=== PATIENT | female | born 1995 | race Caucasian/White ===

== ENCOUNTER 2017-09-03 11:27 | Emergency (ER) | END 2017-09-03 16:42 | disposition home or self-care (01) ==

== ENCOUNTER 2017-09-10 06:27 | Emergency (ER) | END 2017-09-10 09:11 | disposition home or self-care (01) ==

== ENCOUNTER 2018-11-30 12:39 | Emergency (ER) | payer MEDICAID ==
[~2018-11-30] VITALS: Ht 167.6 cm; Wt 83.0 kg
[~2018-11-30 12:39] MED LIST: CEPH-443 PO; CYCL10TA7 PO; IBUP-1542 PO; IBUP800T48 PO; NITR-58 PO; TRAM50TA2 PO
[2018-11-30 13:01] VITALS: Ht 167.6 cm; Wt 83.0 kg
--- NOTE | 2018-11-30 17:32 | ERD ---
ER Documentation Chief Complaint Chief Complaint Complains of generalized weakness x 3 days patient is 18 weeks HPI 23-year-old patient presents with complaint of generalized weakness and chills for the past 3 days. Patient states she is 9 weeks . At this time she states she has some burning in the stomach In the epigastric area. States that she was recently diagnosed with a UTI couple days ago and she just started on amoxicillin yesterday. Denies fevers, back pain, dysuria, nausea, vomiting, diarrhea, flank pain. Denies any past medical history. She is unsure of her allergy history. ROS All systems reviewed and are negative except as per history of present illness. Medications Home Meds Active Scripts Cephalexin* (Keflex*) 500 Mg Capsule, 500 MG PO BID for UTI for 7 Days, CAP Prov:JOSEFA GRAY 11/30/18 Nitrofurantoin Monohyd Macrocr* (Macrobid*) 100 Mg Capsr, 100 MG PO BID for 5 Days, CAP Prov:DESIREE FALLON PA-C 09/15/18 Cephalexin* (Keflex*) 500 Mg Capsule, 500 MG PO QID for 10 Days, CAP Prov:VONDA HUERTAS MD 09/10/17 Ibuprofen* (Motrin*) 800 Mg Tab, 800 MG PO Q6H PRN for PAIN AND OR ELEVATED TEMP, #30 TAB Prov:VONDA HUERTAS MD 09/10/17 Cyclobenzaprine Hcl* (Cyclobenzaprine Hcl*) 10 Mg Tablet, 10 MG PO BID, #8 TAB Prov:GEE MONTOYA PA-C 05/13/16 Ibuprofen* (Motrin*) 600 Mg Tab, 600 MG PO Q6, #30 TAB Prov:GEE MONTOYA PA-C 05/13/16 Tramadol HCl (Tramadol HCl) 50 Mg Tablet, 50 MG PO Q4 PRN for PAIN, #20 TAB Prov:GEE MONTOYA PA-C 05/13/16 Allergies Allergies: Coded Allergies: No Known Allergy (Unverified , 09/10/17) PMhx/Soc History of Surgery: Yes (RIGHT HIP SX WITH SCREWS) Anesthesia Reaction: No Hx Miscellaneous Medical Probl: Yes (intrauterine devices) Hx Alcohol Use: No Hx Substance Use: No Hx Tobacco Use: No Smoking Status: Never smoker FmHx Family History: No diabetes, No coronary disease, No other Physical Exam Vitals Vital Signs Date Temp Pulse Resp B/P (MAP) Pulse Ox O2 O2 Flow FiO2 Time Delivery Rate 11/30/18 98.2 75 18 119/64 100 Room Air 18:41 (82) 11/30/18 97.4 70 20 107/60 98 13:01 (76) Physical Exam Const: No acute distress Head: Atraumatic Eyes: Normal Conjunctiva ENT: Normal External Ears, Nose and Mouth. Neck: Full range of motion. No meningismus. Resp: Clear to auscultation bilaterally Cardio: Regular rate and rhythm, no murmurs Abd: Soft, non tender, non distended. Normal bowel sounds Skin: No petechiae or rashes Back: No midline or flank tenderness Ext: No cyanosis, or edema Neur: Awake and alert Psych: Normal Mood and Affect Result Diagram: 11/30/18 2430 Results 24 hrs Laboratory Tests Test 11/30/18 17:06 11/30/18 17:12 Urine Color MARGAUX Urine Clarity CLOUDY Urine pH 5.0 Urine Specific [place] 1.031 Urine Ketones TRACE mg/dL Urine Nitrite NEGATIVE mg/dL Urine Bilirubin NEGATIVE mg/dL Urine Urobilinogen 1+ mg/dL Urine Leukocyte Esterase 2+ Dmitry/ul Urine Microscopic RBC 10 /HPF Urine Microscopic WBC 12 /HPF Urine Squamous Epithelial Cells MANY /HPF Urine Bacteria FEW /HPF Urine Mucus FEW /HPF Urine Yeast (Budding) FEW /HPF Urine Hemoglobin NEGATIVE mg/dL Urine Glucose NEGATIVE mg/dL Urine Total Protein NEGATIVE mg/dl White Blood Count 10.3 10^3/ul Red Blood Count 4.37 10^6/ul Hemoglobin 13.0 g/dl Hematocrit 39.8 % Mean Corpuscular Volume 91.1 fl Mean Corpuscular Hemoglobin 29.7 pg Mean Corpuscular Hemoglobin Concent 32.7 g/dl Red Cell Distribution Width 14.1 % Platelet Count 320 10^3/UL Mean Platelet Volume 9.4 fl Immature Granulocytes % 0.700 % Neutrophils % 79.2 % Lymphocytes % 12.2 % Monocytes % 5.7 % Eosinophils % 1.7 % Basophils % 0.5 % Nucleated Red Blood Cells % 0.0 /100WBC Immature Granulocytes # 0.070 10^3/ul Neutrophils # 8.1 10^3/ul Lymphocytes # 1.3 10^3/ul Monocytes # 0.6 10^3/ul Eosinophils # 0.2 10^3/ul Basophils # 0.1 10^3/ul Nucleated Red Blood Cells # 0.0 10^3/ul Lipase 92 U/L Beta HCG, Quantitative 634403.0 mIU/ml Procedures/MDM DIAGNOSTIC IMAGING REPORT Patient: BRICE ALBA : 1995 Age: 23 Sex: F MR #: [id number] DOS: 11/30/18 1700 Ordering MD: JOSEFA GRAY Location: [facility]TE Room/Bed: PROCEDURE: US OB. CLINICAL INDICATION: Pelvic pain TECHNIQUE: Transabdominal views of the pelvis were obtained. COMPARISON: No prior studies are available for comparison. FINDINGS: There is a single intrauterine gestation with a CRL measuring 1.1 cm, corresponding to a gestational age of 7 weeks and 1 day. The heart rate is noted at 161 bpm. There is a hypoechoic fluid collection adjacent to the gestational sac, measuring 1.3 cm, consistent with subchorionic hemorrhage. The right ovary measures 2.6 x 1.7 x 2.6 cm. The left ovary measures 2.8 x 1.9 x 2.7 cm. No ovarian or adnexal mass lesion is seen. There is no free fluid. RPTAT: AA IMPRESSION: Single live intrauterine with an estimated gestational age of 7 weeks and 1 day, based on ultrasound measurements. Small area of subchorionic hemorrhage. Close follow-up is recommended. .Jon Alcocer MD, MD Date Time Electronically viewed and signed by .Jon Alcocer MD, on 11/30/2018 18:00 .S/ CC: JOSEFA GRAY [id number] ER Course: CBC, UA, beta quant HCG, type and RH, vaginal US/abdominal US ordered. UA positive for UT. MDM: UA was positive for UTI. Patient stated that she was taking amoxicillin but I advised her that Keflex is the recommended antibiotic and patients with UTIs and I prescribed her Keflex which she agreed to take instead. I have low suspicion for pyelonephritis given the lack of fever, flank pain, vomiting. I have low suspicion for ectopic based on results of US, hemodynamic stability, physical exam and patient history. I have low suspicion for septic , placenta abrupta, appendicitis, cholecystitis, bowel obstruction, ovarian torsion, symptomatic anemia, PID, surgical abdomen, or other life threatening conditions based on patient history, physical exam, and lab/imaging results. Patient discharged with strict ER precautions. 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 All questions answered at discharge. Departure Diagnosis: Primary Impression: UTI (urinary tract infection) Urinary tract infection type: site unspecified Hematuria presence: without hematuria Qualified Codes: N39.0 - Urinary tract infection, site not specified Additional Impression: Acute weakness Condition: Stable JOSEFA GRAY Nov 30, 2018 17:32
[2018-11-30] MEDS ORDERED: CEPH-443 PO (18:07)
[2018-11-30 18:41] VITALS: BP 119/64; PULSE 75; RESP 18
== END 2018-11-30 18:42 | disposition home or self-care (01) ==
LOC: FTE 12:39
DX: O23.41 Unspecified infection of urinary tract in pregnancy, first trimester (principal); R53.1 Weakness; R10.2 Pelvic and perineal pain; Z3A.01 Less than 8 weeks gestation of pregnancy
CPT/HCPCS: 36415; 76801; 81001; 83690; 84702; 85025; 86900; 86901; 87086

== ENCOUNTER 2018-12-01 21:05 | Emergency (ER) | payer SELFPAY ==
[~2018-12-01] VITALS: Ht 165.1 cm; Wt 84.5 kg
[2018-12-01 21:13] VITALS: BP 119/67; PULSE 61; RESP 18; Ht 165.1 cm; Wt 84.5 kg
[2018-12-02] MEDS ORDERED: ACET-141 PO (03:28)
== END 2018-12-01 21:30 | disposition left against medical advice (07) ==
LOC: FTE 21:05
DX: Z53.21 Procedure and treatment not carried out due to patient leaving prior to being seen by health care provider (principal)

== ENCOUNTER 2018-12-01 22:33 | Emergency (ER) | payer MEDICAID ==
[~2018-12-01] VITALS: Ht 165.1 cm; Wt 84.7 kg
[2018-12-02 00:08] VITALS: BP 127/74; PULSE 76; RESP 18; Ht 165.1 cm; Wt 84.7 kg
[2018-12-02] MEDS ORDERED: LIDOCAINE 1% (MPF) 5 ML VIAL INFIL ONE (02:00)
[2018-12-02] MEDS ORDERED: ACET-141 PO (03:28)
--- NOTE | 2018-12-02 03:29 | ERD ---
ER Documentation Chief Complaint Chief Complaint swelling/pain right axilla x 2 days, 7 weeks . on atb for uti HPI 23-year-old female presents for right axilla nodule times 2 days. She states that she has 10 out of 10 pain, pain described as a throbbing sensation, nonradiating. She denies fever. states that she been taking Tylenol at home without relief. She does have a history of right axilla cyst. She is currently taking amoxicillin for urinary tract infection. She denies chest pain or shortness of breath. Denies abdominal pain, nausea, vomiting. ROS All systems reviewed and are negative except as per history of present illness. Medications Home Meds Active Scripts Acetaminophen* (Acetaminophen*) 500 MG Extra Strength Tablet, 500 MG PO TID PRN for PAIN, #30 TAB Prov:ZARA PARKER DO 12/02/18 Cephalexin* (Keflex*) 500 Mg Capsule, 500 MG PO BID for UTI for 7 Days, CAP Prov:JOSEFA GRAY 11/30/18 Nitrofurantoin Monohyd Macrocr* (Macrobid*) 100 Mg Capsr, 100 MG PO BID for 5 Days, CAP Prov:DESIREE FALLON PA-C 09/15/18 Cephalexin* (Keflex*) 500 Mg Capsule, 500 MG PO QID for 10 Days, CAP Prov:VONDA HUERTAS MD 09/10/17 Ibuprofen* (Motrin*) 800 Mg Tab, 800 MG PO Q6H PRN for PAIN AND OR ELEVATED TEMP, #30 TAB Prov:VONDA HUERTAS MD 09/10/17 Cyclobenzaprine Hcl* (Cyclobenzaprine Hcl*) 10 Mg Tablet, 10 MG PO BID, #8 TAB Prov:GEE MONTOYA PA-C 05/13/16 Ibuprofen* (Motrin*) 600 Mg Tab, 600 MG PO Q6, #30 TAB Prov:GEE MONTOYA PA-C 05/13/16 Tramadol HCl (Tramadol HCl) 50 Mg Tablet, 50 MG PO Q4 PRN for PAIN, #20 TAB Prov:GEE MONTOYA PA-C 05/13/16 Allergies Allergies: Coded Allergies: No Known Allergy (Unverified , 09/10/17) PMhx/Soc History of Surgery: Yes (RIGHT HIP SX WITH SCREWS) Anesthesia Reaction: No Hx Miscellaneous Medical Probl: Yes (intrauterine devices) Hx Alcohol Use: No Hx Substance Use: No Hx Tobacco Use: No Physical Exam Vitals Vital Signs Date Temp Pulse Resp B/P (MAP) Pulse Ox O2 O2 Flow FiO2 Time Delivery Rate 12/02/18 84.9 76 18 127/74 100 00:08 (91) Physical Exam Const: No acute distress Resp: Clear to auscultation bilaterally Cardio: Regular rate and rhythm, no murmurs Abd: Soft, non tender, non distended. Normal bowel sounds Skin: Right axilla nodule about 2 cm with underlying fluctuance and mild inc reased warmth over the area. Back: No midline or flank tenderness Ext: No cyanosis, or edema Neur: Awake and alert Psych: Normal Mood and Affect Results 24 hrs Current Medications Medications Dose Sig/Krishan Start Time Status Last (Trade) Ordered Route PRN Stop Time Admin Dose Reason Admin Lidocaine 5 ml ONCE ONCE 12/02/18 DC (Xylocaine INFIL 02:00 12/02/18 1% (Mpf)) 02:01 Procedures/MDM Abscess Incision and Drainage with irrigation by me: Location: Right axilla Anesthesia: [Local 1% Lidocaine without epinephrine] Technique: [Irrigated. Disrupted loculations w/ instrumentation] Packing: [None] Complications: [Neurovascularly intact post procedure] 48 hour wound check. Scar minimization instructions given. Patient's skin symptoms have stabilized while they have been evaluated in the department and are appropriate for outpatient care and work up. Exam and w/u not consistent w/ sepsis, deep space infection, or foreign body. Medical Decision Making: Differential diagnosis includes but not limited to abscess, cellulitis, erysipelas Patient appeared well on physical exam. Physical examination consistent with a right axilla abscess Incision and drainage was done in the ER, see procedure note above. Patient advised to continue with amoxicillin for urinary tract infection. Advised to return to the ER in 48 hours for wound check. Prescription(s): Patient given prescription for supportive medication(s). Patient advised to follow up with PCP in 1-2 days. Patient advised to return to ED for new or worsening symptoms. Patient stable on discharge from the ED. Disclaimer: Inadvertent spelling and grammatical errors are likely due to EHR/dictation software use and do not reflect on the overall quality of patient care. Also, please note that the electronic time recorded on this note does not necessarily reflect the actual time of the patient encounter. Departure Diagnosis: Primary Impression: Abscess Condition: Fair Patient Instructions: Abscess, Incision And Drainage Referrals: [facility] YOU HAVE RECEIVED A MEDICAL SCREENING EXAM AND THE RESULTS INDICATE THAT YOU DO NOT HAVE A CONDITION THAT REQUIRES URGENT TREATMENT IN THE EMERGENCY DEPARTMENT. FURTHER EVALUATION AND TREATMENT OF YOUR CONDITION CAN WAIT UNTIL YOU ARE SEEN IN YOUR DOCTORS OFFICE WITHIN THE NEXT 1-2 DAYS. IT IS YOUR RESPONSIBILITY TO MAKE AN APPOINTMENT FOR FOLOW-UP CARE. IF YOU HAVE A PRIMARY DOCTOR --you should call your primary doctor and schedule an appointment IF YOU DO NOT HAVE A PRIMARY DOCTOR YOU CAN CALL OUR PHYSICIAN REFERRAL HOTLINE AT IF YOU CAN NOT AFFORD TO SEE A PHYSICIAN YOU CAN CHOSE FROM THE FOLLOWING [facility] [address] [facility] [address]. [facility] [address] [facility] [address] [facility] [address] [facility]. [facility] [address] [facility]. [facility]. [address] Additional Instructions: Call your primary care doctor TOMORROW for an appointment during the next 1-2 days.See the doctor sooner or return here if your condition worsens before your appointment time. Return to ED in 2 days for wound check. ZARA PARKER DO Dec 02, 2018 03:29
== END 2018-12-02 03:44 | disposition home or self-care (01) ==
LOC: FTE 22:33
DX: O99.711 Diseases of the skin and subcutaneous tissue complicating pregnancy, first trimester (principal); L02.411 Cutaneous abscess of right axilla; Z3A.01 Less than 8 weeks gestation of pregnancy
CPT/HCPCS: 10060; Z7502; Z7610

== ENCOUNTER 2019-02-05 11:55 | Emergency (ER) | payer MEDICAID ==
[~2019-02-05] VITALS: Ht 165.1 cm; Wt 83.9 kg
[~2019-02-05 11:55] MED LIST changes: +ACET-141 PO
[2019-02-05 12:17] VITALS: BP 128/56; PULSE 91; RESP 18; Ht 165.1 cm; Wt 83.9 kg
[2019-02-05] MEDS ORDERED: CEPH-443 PO (13:45)
[2019-02-05] MEDS ORDERED: ACET325T33 PO (13:46)
--- NOTE | 2019-02-05 13:51 | ERD ---
ER Documentation Chief Complaint Chief Complaint flu like symptoms weak, poor appetite with diarrhea HPI 23-year-old female presenting with itchy eyes runny nose scratchy throat since Tuesday. Patient states she is 18 weeks and her OB is Dr. Marquis at [facility]. Patient denies any abdominal pain, vaginal bleeding, pelvic or abdominal discomfort. Patient states that she is just been feeling like she has a scratchy throat runny nose sore throat. Patient denies shortness of breath, productive cough, chest pain. Patient denies any allergies to medic ations. Patient states she is only taking her vitamins. ROS All systems reviewed and are negative except as per history of present illness. Medications Home Meds Active Scripts Acetaminophen* (Tylenol*) 325 Mg Tablet, 1 TAB PO Q6 PRN for PAIN AND OR ELEVATED TEMP, #20 TAB Prov:JAS MONGE PA-C 02/05/19 Cephalexin* (Keflex*) 500 Mg Capsule, 500 MG PO BID for 7 Days, CAP Prov:JAS MONGE PA-C 02/05/19 Acetaminophen* (Acetaminophen*) 500 MG Extra Strength Tablet, 500 MG PO TID PRN for PAIN, #30 TAB Prov:ZARA PARKER DO 12/02/18 Cephalexin* (Keflex*) 500 Mg Capsule, 500 MG PO BID for UTI for 7 Days, CAP Prov:JOSEFA GRAY 11/30/18 Nitrofurantoin Monohyd Macrocr* (Macrobid*) 100 Mg Capsr, 100 MG PO BID for 5 Days, CAP Prov:DESIREE FALLON PA-C 09/15/18 Cephalexin* (Keflex*) 500 Mg Capsule, 500 MG PO QID for 10 Days, CAP Prov:VONDA HUERTAS MD 09/10/17 Ibuprofen* (Motrin*) 800 Mg Tab, 800 MG PO Q6H PRN for PAIN AND OR ELEVATED TEMP, #30 TAB Prov:VONDA HUERTAS MD 09/10/17 Cyclobenzaprine Hcl* (Cyclobenzaprine Hcl*) 10 Mg Tablet, 10 MG PO BID, #8 TAB Prov:GEE MONTOYA PA-C 05/13/16 Ibuprofen* (Motrin*) 600 Mg Tab, 600 MG PO Q6, #30 TAB Prov:GEE MONTOYA PA-C 05/13/16 Tramadol HCl (Tramadol HCl) 50 Mg Tablet, 50 MG PO Q4 PRN for PAIN, #20 TAB Prov:GEE MONTOYA Geno JONES 05/13/16 Allergies Allergies: Coded Allergies: No Known Allergy (Unverified , 09/10/17) PMhx/Soc History of Surgery: Yes (RIGHT HIP ) Anesthesia Reaction: No Hx Miscellaneous Medical Probl: Yes (18 weeks ) Hx Alcohol Use: No Hx Substance Use: No Hx Tobacco Use: No Smoking Status: Never smoker FmHx Family History: No diabetes, No coronary disease, No other Physical Exam Vitals Vital Signs Date Temp Pulse Resp B/P (MAP) Pulse Ox O2 O2 Flow FiO2 Time Delivery Rate 02/05/19 97.8 91 18 128/56 97 12:17 (80) Physical Exam GENERAL: The patient is well-appearing, well-nourished, in no acute distress HEENT: Atraumatic. Conjunctivae are pink. Pupils equal, round, and reactive to light. There is no scleral icterus. Tympanic membranes clear bilaterally. Oropharynx clear. No nystagmus or photophobia. NECK: C-spine is soft and supple. There is no meningismus. There is no cervical lymphadenopathy. CHEST: Clear to auscultation bilaterally. There are no rales, wheezes or rhonchi. HEART: Regular rate and rhythm. No murmurs, clicks, rubs or gallops. ABDOMEN:Soft, nontender and nondistended. Good bowel sounds. No rebound or guarding. No gross peritonitis. No gross organomegaly or masses. No Mcconnell sign or McBurney point tenderness. BACK: No midline or flank tenderness. Results 24 hrs Laboratory Tests Test 02/05/19 13:08 Urine Color YELLOW Urine Clarity CLOUDY Urine pH 7.0 Urine Specific [place] 1.016 Urine Ketones NEGATIVE mg/dL Urine Nitrite NEGATIVE mg/dL Urine Bilirubin NEGATIVE mg/dL Urine Urobilinogen NEGATIVE mg/dL Urine Leukocyte Esterase 3+ Dmitry/ul Urine Microscopic RBC 2 /HPF Urine Microscopic WBC 10 /HPF Urine Squamous Epithelial Cells MANY /HPF Urine Bacteria FEW /HPF Urine Mucus FEW /HPF Urine Hemoglobin NEGATIVE mg/dL Urine Glucose NEGATIVE mg/dL Urine Total Protein NEGATIVE mg/dl Procedures/MDM ED course: UA Rapid strep The patient was stable throughout the ED course. The patient and/or family informed of laboratory and diagnostic imaging results throughout the ED course. Medical decision makin-year-old female presenting with URI symptoms. Patient's physical exam was unremarkable rapid strep was done and negative. The UA was obtained on the patient and indicated that she has a UTI. Patient denied any symptoms of dysuria, frequency, presence of blood in urine, back pain. Patient's physical exam was unremarkable. Patient's UA came back positive for UTI. Patient has no allergies to medications and is asymptomatic, patient will be treated outpatient with Keflex. Patient was informed that she has an upper respiratory infection that is most likely viral she can take acetaminophen for any discomfort but to just increase her daily water intake. Based on physical exam I have Low suspicion for pneumonia, meningitis, sinusitis, otitis externa, acute otitis media, strep pharyngitis, epiglottitis or peritonsillar abscess, threatened , spontaneous placenta, vasa-previa, placenta previa, placenta percreta, cervical lesions, uterine abruption, bleeding from bowel or bladder. Patient has been instructed to follow-up with her OB regarding this visit. The patient had no further questions upon discharge and is in agreement to the treatment plan. Patient was advised if symptoms worsen to return the ER immediately Prescription for home: Keflex Acetaminophen Discharge: At this time, patient is stable for discharge and outpatient management. I have instructed the patient to follow-up with his\her primary care physician in 1 to 2 days. I have discussed with the patient the possibility of needing to see a specialist for further work-up and imaging studies if symptoms persist. I have instructed the patient to promptly return to the ER for any new or worsening symptoms including increased pain, fever, nausea, vomiting, weakness or LOC. The patient and\or family expressed understanding of and agreement with this plan. All questions were answered. Home care instructions were provided. Disclaimer: Inadvertent spelling and grammatical errors are likely due to EHR\dictation software use and do not reflect on the overall quality of patient care. Also, please note that the electronic time recorded on the note does not necessarily reflect the actual time of the patient encounter. Departure Diagnosis: Primary Impression: Upper respiratory infection URI type: unspecified viral URI Qualified Codes: J06.9 - Acute upper respiratory infection, unspecified Additional Impression: UTI (urinary tract infection) Urinary tract infection type: site unspecified Hematuria presence: without hematuria Qualified Codes: N39.0 - Urinary tract infection, site not specified Condition: Stable Referrals: [facility] YOU HAVE RECEIVED A MEDICAL SCREENING EXAM AND THE RESULTS INDICATE THAT YOU DO NOT HAVE A CONDITION THAT REQUIRES URGENT TREATMENT IN THE EMERGENCY DEPARTMENT. FURTHER EVALUATION AND TREATMENT OF YOUR CONDITION CAN WAIT UNTIL YOU ARE SEEN IN YOUR DOCTORS OFFICE WITHIN THE NEXT 1-2 DAYS. IT IS YOUR RESPONSIBILITY TO MAKE AN APPOINTMENT FOR FOLOW-UP CARE. IF YOU HAVE A PRIMARY DOCTOR --you should call your primary doctor and schedule an appointment IF YOU DO NOT HAVE A PRIMARY DOCTOR YOU CAN CALL OUR PHYSICIAN REFERRAL HOTLINE AT IF YOU CAN NOT AFFORD TO SEE A PHYSICIAN YOU CAN CHOSE FROM THE FOLLOWING [facility] [address] [facility]. [facility] [address] [facility]. [facility] [address] [facility] [address] [facility] [facility] [address] [facility] [facility] [address] [facility]. [facility] YOU HAVE RECEIVED A MEDICAL SCREENING EXAM AND THE RESULTS INDICATE THAT YOU DO NOT HAVE A CONDITION THAT REQUIRES URGENT TREATMENT IN THE EMERGENCY DEPARTMENT. FURTHER EVALUATION AND TREATMENT OF YOUR CONDITION CAN WAIT UNTIL YOU ARE SEEN IN YOUR DOCTORS OFFICE WITHIN THE NEXT 1-2 DAYS. IT IS YOUR RESPONSIBILITY TO MAKE AN APPOINTMENT FOR FOLOW-UP CARE. IF YOU HAVE A PRIMARY DOCTOR --you should call your primary doctor and schedule and appointment IF YOU DO NOT HAVE A PRIMARY DOCTOR YOU CAN CALL OUR PHYSICIAN REFERRAL HOTLINE AT . IF YOU CAN NOT AFFORD TO SEE A PHYSICIAN YOU CAN CHOSE FROM THE FOLLOWING [facility] INSTITUTIONS: [facility] [address] [place] [address] [facility] [address] [place] [address] [facility] [address] [place] [address] Additional Instructions: Call your primary care doctor TOMORROW for an appointment during the next 1-2 days.See the doctor sooner or return here if your condition worsens before your appointment time. JAS MONGE PA-C Feb 05, 2019 13:51
== END 2019-02-05 14:20 | disposition home or self-care (01) ==
LOC: FTE 11:55
DX: O99.512 Diseases of the respiratory system complicating pregnancy, second trimester (principal); J06.9 Acute upper respiratory infection, unspecified; O23.42 Unspecified infection of urinary tract in pregnancy, second trimester; Z3A.18 18 weeks gestation of pregnancy
CPT/HCPCS: 81001; 87086; 87880; Z7502; 99283

== ENCOUNTER 2019-05-16 10:27 | Outpatient (CLI) | payer MEDICAID ==
[~2019-05-16] VITALS: Ht 165.1 cm; Wt 86.3 kg
[~2019-05-16 10:27] MED LIST changes: +ACET325T33 PO
[2019-05-16 10:42] VITALS: Ht 165.1 cm; Wt 86.3 kg
[2019-05-16 10:43] VITALS: BP 118/66; PULSE 80; RESP 18
== END 2019-05-16 12:10 | disposition home or self-care (01) ==
LOC: OBT 10:27 → L-D 10:29 → OBT 12:10
PROVIDERS: ATTEND Obstetrics & Gynecology
DX: O26.893 Other specified pregnancy related conditions, third trimester (principal); Z3A.32 32 weeks gestation of pregnancy; R35.0 Frequency of micturition; M54.9 Dorsalgia, unspecified
CPT/HCPCS: 76817; 76818; 81001; 87086; Z7500; G0463

== ENCOUNTER 2019-06-26 13:00 | Inpatient (IN) | payer MEDICAID ==
[~2019-06-26] VITALS: Ht 165.1 cm; Wt 87.4 kg
[~2019-06-26 13:00] MED LIST changes: -ACET-141 PO; -ACET325T33 PO; -CEPH-443 PO; -CYCL10TA7 PO; -IBUP800T48 PO; -NITR-58 PO; -TRAM50TA2 PO
[2019-06-26 13:33] VITALS: Ht 165.1 cm; Wt 87.4 kg
[2019-06-26 13:34] VITALS: BP 109/63; PULSE 81; RESP 18
[2019-06-26] MEDS ORDERED: LACTATED RINGER'S 1,000 ML IV PRN (15:40)
[2019-06-26] MEDS ORDERED: OXYTOCIN 30 UNITS/LR 500 ML IV SCH ×3 (16:00)
[2019-06-26] MEDS ORDERED: MISOPROSTOL 200 MCG TAB PR PRN (16:00)
[2019-06-26] MEDS ORDERED: METHYLERGONOVINE 0.2 MG INJ IM PRN (16:00)
[2019-06-26] MEDS ORDERED: MINERAL OIL LIGHT 10 ML VIAL TOP PRN (16:00)
[2019-06-26] MEDS ORDERED: AMPICILLIN 2 GM/NS (PMX) 100 ML IV ONE (16:00)
[2019-06-26] MEDS ORDERED: IBUPROFEN 600 MG TAB PO PRN (16:00)
[2019-06-26] MEDS ORDERED: OXYTOCIN 30 UNITS/LR 500 ML IV PRN (16:00)
[2019-06-26] MEDS ORDERED: CARBOPROST 250 MCG INJ IM PRN (16:00)
[2019-06-26] MEDS ORDERED: LIDOCAINE 1% (MPF) 30 ML INJ INJ PRN (16:00)
[2019-06-26] MEDS: LACTATED RINGER'S 1,000 ML IV SCH (16:03)
[2019-06-26] MEDS: MISOPROSTOL 50 MCG CAPSULE PO SCH ×2 (17:46→22:37)
[2019-06-26] MEDS: URSODIOL 300 MG CAP PO SCH (20:56)
[2019-06-26] MEDS: AMPICILLIN 1 GM/NS (PMX) 50 ML IV SCH (20:56)
[2019-06-27] MEDS: LACTATED RINGER'S 1,000 ML IV SCH ×3 (01:55→19:52)
[2019-06-27] MEDS: AMPICILLIN 1 GM/NS (PMX) 50 ML IV SCH ×6 (02:01→22:06)
[2019-06-27] MEDS: MISOPROSTOL 50 MCG CAPSULE PO SCH ×4 (04:34→16:22)
[2019-06-27] MEDS ORDERED: MISOPROSTOL 50 MCG CAPSULE PO SCH (08:30)
[2019-06-27] MEDS: URSODIOL 300 MG CAP PO SCH ×3 (09:30→22:06)
[2019-06-28] MEDS: AMPICILLIN 1 GM/NS (PMX) 50 ML IV SCH ×5 (02:11→18:09)
[2019-06-28] MEDS: LACTATED RINGER'S 1,000 ML IV SCH ×3 (04:18→17:07)
[2019-06-28] MEDS: URSODIOL 300 MG CAP PO SCH ×2 (09:09→13:00)
[2019-06-28] MEDS: BUTORPHANOL 2 MG INJ IV PRN ×2 (13:47→16:41)
[2019-06-28] MEDS ORDERED: NALOXONE (0.4 MG/ML) INJ IV PRN (15:00)
[2019-06-28] MEDS ORDERED: ONDANSETRON 4 MG INJ IV PRN (15:00)
[2019-06-28] MEDS ORDERED: DIPHENHYDRAMINE 50 MG INJ IV PRN (15:00)
[2019-06-28] MEDS ORDERED: FENTAnyl 2MCG/ML-ROPIV 0.2% 100 ML BAG EPI SCH (15:00)
[2019-06-28] MEDS ORDERED: MINERAL OIL LIGHT 10 ML VIAL TOP ONE (20:30)
[2019-06-28 21:10] VITALS: BP 112/50; PULSE 71; RESP 20
[2019-06-28 21:25] VITALS: BP 118/61; PULSE 72; RESP 20
[2019-06-28 21:40] VITALS: BP 120/56; PULSE 70; RESP 20
[2019-06-28 23:00] VITALS: BP 116/62; PULSE 62; RESP 18
[2019-06-28] MEDS ORDERED: METHYLERGONOVINE 0.2 MG INJ IM PRN (23:30)
[2019-06-28] MEDS ORDERED: OXYCODONE/ASPIRIN (4.88/325) TAB PO PRN ×2 (23:30)
[2019-06-28] MEDS ORDERED: OXYTOCIN 30 UNITS/LR 500 ML IV PRN (23:30)
[2019-06-28] MEDS ORDERED: ZOLPIDEM 5 MG TAB PO PRN (23:30)
[2019-06-28] MEDS ORDERED: LANOLIN HPA 1 PKT TOP PRN (23:30)
[2019-06-28] MEDS ORDERED: MISOPROSTOL 200 MCG TAB PR PRN (23:30)
[2019-06-28] MEDS ORDERED: CARBOPROST 250 MCG INJ IM PRN (23:30)
[2019-06-29] MEDS: IBUPROFEN 600 MG TAB PO SCH ×4 (00:18→17:37)
[2019-06-29] MEDS: BENZOCAINE 20% 56 ML SPRAY TOP PRN (00:18)
[2019-06-29] MEDS: WITCH HAZEL/GLYCERIN PAD PR PRN (00:18)
[2019-06-29 03:00] VITALS: BP 98/53; PULSE 62; RESP 20
[2019-06-29 08:30] VITALS: BP 109/66; PULSE 69; RESP 18
[2019-06-29] MEDS: SENNA/DOCUSATE NA (8.6MG/50MG) TAB PO SCH ×2 (09:34→22:05)
[2019-06-29 12:00] VITALS: BP 102/60; PULSE 72; RESP 16
[2019-06-29 16:10] VITALS: BP 110/65; PULSE 64; RESP 16
[2019-06-29] MEDS: CEPHALEXIN 500 MG CAP PO SCH (17:37)
[2019-06-29 21:17] VITALS: BP 120/64; PULSE 70; RESP 16
[2019-06-30] MEDS: CEPHALEXIN 500 MG CAP PO SCH ×3 (00:07→11:41)
[2019-06-30] MEDS: IBUPROFEN 600 MG TAB PO SCH ×3 (00:07→11:41)
[2019-06-30 03:45] VITALS: BP 108/77; PULSE 57; RESP 19
[2019-06-30 08:00] VITALS: BP 105/56; PULSE 67; RESP 18
[2019-06-30] MEDS: SENNA/DOCUSATE NA (8.6MG/50MG) TAB PO SCH (08:22)
[2019-06-30] MEDS ORDERED: DIPHTH/TET/ACEL PERTUSS (ADULT) 0.5 ML VIAL IM* ONE (09:00)
[2019-06-30] MEDS: WITCH HAZEL/GLYCERIN PAD PR PRN (11:41)
[2019-06-30] MEDS: BENZOCAINE 20% 56 ML SPRAY TOP PRN (11:43)
[2019-07-01] MEDS ORDERED: FLU VACC QS 2019-20 (6MOS UP) 0.5 ML SYG IM* ONE (10:00)
== END 2019-06-30 15:00 | disposition home or self-care (01) | DRG 807 ==
LOC: OBT 13:00 → L-D 13:00 → OBT 15:40 → L-D 15:40 → PP1 06-28 22:47
PROVIDERS: ADMIT Obstetrics & Gynecology; ATTEND Obstetrics & Gynecology
PROC: 10E0XZZ Delivery of Products of Conception, External Approach (ICD-10-PCS; principal; 2019-06-28)
PROC: 0UQMXZZ Repair Vulva, External Approach (ICD-10-PCS; 2019-06-28)
PROC: 0UQMXZZ Repair Vulva, External Approach (ICD-10-PCS; 2019-06-28)
PROC: 3E02340 Introduction of Influenza Vaccine into Muscle, Percutaneous Approach (ICD-10-PCS; 2019-06-30)
DX: O70.0 First degree perineal laceration during delivery (principal); Z37.0 Single live birth; O71.82 Other specified trauma to perineum and vulva; O99.824 Streptococcus B carrier state complicating childbirth; O69.81X0 Labor and delivery complicated by cord around neck, without compression, not applicable or unspecified; Z3A.40 40 weeks gestation of pregnancy; Z23 Encounter for immunization
CPT/HCPCS: 62322; 76815; 76818; 80053; 81001; 85025; 85610; 85730; 86592; 86850; 86900; 86901; 87086; 87340; 99464; G0463; J0290; J0595; J2590; J3010; J7120